=== PATIENT | female | born 1980 ===

== ENCOUNTER 2018-11-27 16:03 | Emergency (ER) | payer BC ==
--- NOTE | 2018-11-27 16:16 | ER Report ---
History and Physical Time Seen By MD: 16:07 HPI/ROS CHIEF COMPLAINT: right low back pain HISTORY OF PRESENT ILLNESS: Patient is a 38 yo F that presents after falling off her horse and landing on her right low back on a rock about 2 hours prior to arrival. She was able to walk and got back on her horse afterwards. She reports 8/10 pain without radiation, worsens with movement. Notes that she has pre- existing peripheral neuropathy, but denies paresthesias in distal extremeties that are worse than normal. Does admit to some numbness locally in the right low back region. She denies being on anticoagulants. She takes a baby aspirin daily. REVIEW OF SYSTEMS: Constitutional: No fever, no chills. Eyes: No discharge. ENT: No sore throat. Cardiovascular: No chest pain, no palpitations. Respiratory: No cough, no shortness of breath. Gastrointestinal: No abdominal pain, no vomiting. Genitourinary: No hematuria. Musculoskeletal: as in [facility] Skin: No rashes. Neurological: No headache Allergies: Coded Allergies: Sulfa (Sulfonamide Antibiotics) (Verified Allergy, Intermediate, 11/27/18) latex (Verified Allergy, Intermediate, 11/27/18) trazodone (Verified Allergy, Intermediate, 11/27/18) Home Meds Active Scripts Cyclobenzaprine Hcl (CYCLOBENZAPRINE HCL) 10 Mg Tablet, 5-10 MG PO TID PRN for MUSCLE SPASMS, #9 TAB 0 Refills Prov:JOSE AGUILAR [facility]- 11/27/18 Oxycodone/Acetaminophen (OXYCODONE/ACETAMINOPHEN 5MG/325 MG) 5 Mg/325 Mg Tab, 1 TAB PO Q4-6H PRN for PAIN, #5 TAB 0 Refills Prov:JOSE AGUILAR [facility]-BC 11/27/18 Reported Medications Methocarbamol (METHOCARBAMOL) 500 Mg Tablet, 500 MG PO TID 11/27/18 Escitalopram Oxalate (ESCITALOPRAM OXALATE) 20 Mg Tablet, 20 MG PO QDAY 11/27/18 Nortriptyline Hcl (NORTRIPTYLINE HCL) 10 Mg Cap, 20 MG PO HS, CAP 11/27/18 Omeprazole (OMEPRAZOLE) 40 Mg Capsule.dr, 40 MG PO BID, CAP 11/27/18 Fexofenadine Hcl (FEXOFENADINE HCL) 60 Mg Tablet, 30 MG PO QDAY 11/27/18 Ubidecarenone (COQ-10) 100 Mg Capsule, 100 MG PO QDAY, CAPSULE 11/27/18 Aspirin (ASPIR 81) 81 Mg Tablet.dr, 81 MG PO QDAY, TAB 11/27/18 Propranolol Hcl (PROPRANOLOL HCL) 20 Mg Tablet, 20 MG PO TID, #15 TAB 11/27/18 Amlodipine Besylate (AMLODIPINE BESYLATE) 10 Mg Tablet, 1 TAB PO QDAY, TAB 11/27/18 Past Medical/Surgical History Patient has a past medical and surgical history of Randall-Danlos syndrome, IBS, chronic pain, neuropathy, this autonomic syndrome, on pain contract. Reviewed Nurses Notes: Yes Constitutional Vital Sign - Last 24 Hours 11/27/18 11/27/18 11/27/18 11/27/18 16:03 16:07 16:07 16:18 Temp 98.5 Pulse ??? 90 Resp 24 B/P (MAP) 150/103 150/103 (119) 135/98 (110) Pulse Ox 99 O2 Delivery Room Air 11/27/18 11/27/18 11/27/18 11/27/18 16:33 16:51 17:33 17:38 Pulse 84 88 B/P (MAP) 148/101 (117) Pulse Ox 96 92 93 11/27/18 17:49 B/P (MAP) 151/103 (119) Physical Exam General Appearance: The patient is alert, has no immediate need for airway protection and no signs of toxicity. Eyes: Pupils equal and round no pallor or injection. ENT, Mouth: Mucous membranes are moist. Respiratory: There are no retractions, lungs are clear to auscultation. Cardiovascular: Regular rate and rhythm. Gastrointestinal: Abdomen is soft and non tender, no masses, bowel sounds normal. Neurological: Sensation to light touch intact in bilateral lower extremities. Muscle strength 5/5 across the ankles, patient able to lift both legs. Skin: Warm and dry, no rashes. No swellling or hematoma noted yet on right low back. Hematoma over medial upper thigh. Musculoskeletal: Right low belt back operator to palpation, with decreased range of motion of low back as well. Pain to the right hip into the right buttocks. No point tenderness noted over spinous processes. No crepitus or obvious deformities. DIFFERENTIAL DIAGNOSIS: After history and physical exam differential diagnosis was considered for contusion, fracture or sprain/strain. Medical Decision Making Data Points Laboratory Urinalysis Test 11/27/18 16:04 Urine Color Straw Urine Clarity Clear Urine pH 6.0 pH (4.8-9.5) Urine Specific [place] 1.012 Urine Protein Negative mg/dL (NEGATIVE) Urine Glucose (UA) Negative mg/dL (NEGATIVE) Urine Ketones Negative mg/dL (NEGATIVE) Urine Blood Negative (NEGATIVE) Urine Nitrite Negative (NEGATIVE) Urine Bilirubin Negative (NEGATIVE) Urine Urobilinogen Negative mg/dL (0.2-1.9) Urine Leukocyte Esterase Trace (NEGATIVE) Urine RBC <1 /HPF (0-2/HPF) Urine WBC 2 /HPF (0-5/HPF) Urine Squamous Epithelial Cells Moderate /LPF (</=FEW) Urine Bacteria Few /HPF (NONE-FEW) Urine Mucus None /HPF (NONE-FEW) EKG/Imaging Imaging FACILITY: [facility] PATIENT NAME: Ping Guthrie : 1980 MR: [id number] V: [id number] EXAM DATE: ORDERING PHYSICIAN: JOSE AGUILAR TECHNOLOGIST: Location: [facility] Patient: Ping Guthrie : 1980 Visit/Account:[id number] Date of Sevice: 11/27/2018 L-SPINE >4 VIEWS COMPARISON: None. HISTORY: ejected from horse and pain TECHNIQUE: Lumbar spine radiographs (5 views) FINDINGS: ALIGNMENT: Normal alignment. VERTEBRAL BODIES: Intact vertebral body heights without fracture or osseous lesion. Moderate bilateral facet joint hypertrophy at L5-S1. Five lumbar vertebral bodies are noted. Moderate endplate spurring anteriorly and to a lesser degree posteriorly at L5-S1 with degenerative sclerosis in the vertebrae. No pars defects on the oblique views. DISC SPACES: Moderate L5-S1 disc height loss with probable vacuum disc. SACROILIAC JOINTS: Unremarkable. OTHER: IUD in the projection of the central pelvis. IMPRESSION: No acute fracture or subluxation in the lumbar spine. Report Dictated By: Emanuel Mathew at 11/27/2018 5:29 PM Report E-Signed By: Emanuel Mathew at 11/27/2018 5:32 PM WSN:[id number] PATIENT NAME: Ping Guthrie : 1980 MR: [id number] V: [id number] EXAM DATE: ORDERING PHYSICIAN: JOSE AGUILAR TECHNOLOGIST: Location: [facility] Patient: Ping Guthrie : 1980 Visit/Account:[id number] Date of Sevice: 11/27/2018 HIP RIGHT COMPARISON: None. HISTORY: ejected from horse and pain TECHNIQUE: 1 AP view of the pelvis and an additional view of the right hip FINDINGS: BONES: The femoral head is normally formed and in good alignment with a normally formed acetabulum. No significant arthropathy, fracture, malalignment, or significant osseous lesion. SOFT TISSUES: Negative. No visible soft tissue swelling. EFFUSION: None suggested. OTHER: IUD in the projection of the central pelvis. IMPRESSION: No fracture or malalignment in the pelvis or right hip. Report Dictated By: Emanuel Mathew at 11/27/2018 5:27 PM Report E-Signed By: Emanuel Mathew at 11/27/2018 5:29 PM WSN:[id number] ED Course/Re-evaluation ED Course The patient was admitted to room. A history of physical were obtained. Differential diagnoses were considered. An x-ray of the right hip and pelvis were negative, negative lumbar spine x-ray. Negative UA. Patient was given 60 mg IM Toradol with 60 mg IM Norflex. Patient states had minimal to no relief. She is also on a pain contract however this is in [place], she is currently here on vacation, given the injection from the horse, I did write for 5 oxycodone and Flexeril. The patient will follow-up with her primary care provider in pain clinic when she returns home. The patient had no other questions or concerns at this time and was discharged. 11/27/2018 5:28:17 pm Obtained x-ray of hip and and lumbar spine which were negative for fractures or subluxation. UA was negative. For pain management, we will suggest topical options as patient currently follows a pain contract. Decision to Disposition Date: Nov 27, 2018 Decision to Disposition Time: 17:43 Depart Departure Latest Vital Signs Vital Signs Date Time Temp Pulse Resp B/P (MAP) Pulse Ox O2 Delivery O2 Flow Rate FiO2 11/27/18 17:49 151/103 (119) 11/27/18 17:38 88 93 11/27/18 16:07 98.5 24 Room Air Impression: Primary Impression: Contusion of lower back Additional Impression: Fall from horse Condition: Improved Disposition: HOME OR SELF-CARE New Scripts Cyclobenzaprine Hcl (CYCLOBENZAPRINE HCL) 10 Mg Tablet 5-10 MG PO TID PRN for MUSCLE SPASMS, #9 TAB 0 Refills Prov: JOSE AGUILAR [facility] 11/27/18 Oxycodone/Acetaminophen (OXYCODONE/ACETAMINOPHEN 5MG/325 MG) 5 Mg/325 Mg Tab 1 TAB PO Q4-6H PRN for PAIN, #5 TAB 0 Refills Prov: JOSE AGUILAR [employer]- 11/27/18 Patient Instructions: Contusion in Adults (ED) Additional Instructions: You may take ibuprofen or Tylenol as primary pain medication and may take 1 Percocet every 4-6 hrs for breakthrough pain. You may also take Flexeril as pres cribed. Please follow up with you primary care provider when you return home. Return to the emergency department if you experience numbness or weakness, loss of bowel or bladder control. Problem Qualifiers Primary Impression: Contusion of lower back Encounter type: initial encounter Qualified Codes: S30.0XXA - Contusion of lower back and pelvis, initial encounter Additional Impression: Fall from horse Encounter type: initial encounter Qualified Codes: V80.010A - Animal-rider injured by fall from or being thrown from horse in noncollision accident, initial encounter JOSE AGUILAR [facility]- Nov 27, 2018 16:16
[2018-11-27] MEDS ORDERED: AMLO-127 PO (16:28)
[2018-11-27] MEDS ORDERED: ESCI20TA8 PO (16:28)
[2018-11-27] MEDS ORDERED: OMEP40CA48 PO (16:28)
[2018-11-27] MEDS ORDERED: PROP20TA56 PO (16:28)
[2018-11-27] MEDS ORDERED: NOR10 PO (16:28)
[2018-11-27] MEDS ORDERED: FEXO-20 PO (16:28)
[2018-11-27] MEDS ORDERED: METH-278 PO (16:28)
[2018-11-27] MEDS ORDERED: ASPI-1471 PO (16:28)
[2018-11-27] MEDS ORDERED: UBID100C48 PO (16:28)
[2018-11-27] MEDS ORDERED: ORPHENADRINE 60MG/2ML INJ IM ONE (16:40)
[2018-11-27] MEDS ORDERED: KETOROLAC 60 MG/2 ML VIAL IM ONE (16:45)
--- NOTE | 2018-11-27 17:36 | RADIOLOGY IMAGING REPORT ---
FACILITY: [facility] [place] PATIENT NAME: Ping Guthrie : 1980 MR: [id number] V: [id number] EXAM DATE: ORDERING PHYSICIAN: JOSE AGUILAR TECHNOLOGIST: [place] [facility] [place] Ping Guth[place] : 1980 Visit/Account:[id number] Date of Sevice: 11/27/2018 HIP RIGHT COMPARISON: None. HISTORY: ejected from horse and pain TECHNIQUE: 1 AP view of the pelvis and an additional view of the right hip FINDINGS: BONES: The femoral head is normally formed and in good alignment with a normally formed acetabulum. No significant arthropathy, fracture, malalignment, or significant osseous lesion. SOFT TISSUES: Negative. No visible soft tissue swelling. EFFUSION: None suggested. OTHER: IUD in the projection of the central pelvis. IMPRESSION: No fracture or malalignment in the pelvis or right hip. Report Dictated By: Emanuel Mathew at 11/27/2018 5:27 PM Report E-Signed By: Emanuel Mathew at 11/27/2018 5:29 PM WSN:[id number]
--- NOTE | 2018-11-27 17:39 | RADIOLOGY IMAGING REPORT ---
FACILITY: [facility] [place] PATIENT NAME: Ping Guthrie : 1980 MR: [id number] V: [id number] EXAM DATE: ORDERING PHYSICIAN: JOSE AGUILAR TECHNOLOGIST: Location: [facility] [place] Patient: Ping Guthrie : 1980 Visit/Account:[id number] Date of Sevice: 11/27/2018 L-SPINE >4 VIEWS COMPARISON: None. HISTORY: ejected from horse and pain TECHNIQUE: Lumbar spine radiographs (5 views) FINDINGS: ALIGNMENT: Normal alignment. VERTEBRAL BODIES: Intact vertebral body heights without fracture or osseous lesion. Moderate bila teral facet joint hypertrophy at L5-S1. Five lumbar vertebral bodies are noted. Moderate endplate s purring anteriorly and to a lesser degree posteriorly at L5-S1 with degenerative sclerosis in the diya tebrae. No pars defects on the oblique views. DISC SPACES: Moderate L5-S1 disc height loss with probable vacuum disc. SACROILIAC JOINTS: Unremarkable. OTHER: IUD in the projection of the central pelvis. IMPRESSION: No acute fracture or subluxation in the lumbar spine. Report Dictated By: Emanuel Mathew at 11/27/2018 5:29 PM Report E-Signed By: Emanuel Mathew at 11/27/2018 5:32 PM WSN:[id number]
[2018-11-27 17:49] VITALS: BP 151/103
[2018-11-27] MEDS ORDERED: CYCL10TA29 PO (17:56)
[2018-11-27] MEDS ORDERED: PER PO (17:56)
== END 2018-11-27 18:01 | disposition home or self-care (01) ==
LOC: ER 16:08
DX: S30.0XXA Contusion of lower back and pelvis, initial encounter (principal); V80.010A Animal-rider injured by fall from or being thrown from horse in noncollision accident, initial encounter
CPT/HCPCS: 72120; 73502; 81001; 96372; 99284; J1885; J2360